=== PATIENT | male | born 1985 | race Caucasian/White ===

== ENCOUNTER 2022-07-11 16:31 | Emergency (ER) | payer SELFPAY ==
[~2022-07-11] VITALS: Ht 170.2 cm; Wt 70.3 kg
[2022-07-11 16:32] VITALS: BP_SYST 118
--- NOTE | 2022-07-11 16:32 | NUR ---
Patient to ER bed H1 to gown for evaluation. Side rails up.
--- NOTE | 2022-07-11 16:50 | NUR ---
ER at bedside examining patient.
--- NOTE | 2022-07-11 17:25 | NUR ---
Patient does not wish to proceed with medical care recommended by . Patient given information related to possible complications, up to and including , which could occur as a result of leaving hospital at this time. Patient verbalizes understanding of risks involved leaving against medical advice. Patient has signed AMA form.
== END 2022-07-11 17:25 ==
LOC: SED 16:31
DX: Z02.89 Encounter for other administrative examinations (principal); Z53.29 Procedure and treatment not carried out because of patient's decision for other reasons; Z79.899 Other long term (current) drug therapy
CPT/HCPCS: 99283